=== PATIENT | male | born 1980 | race African-American/Black ===

== ENCOUNTER 2016-12-16 19:54 | Emergency (ER) | payer MEDICAID, OTHER ==
[~2016-12-16] VITALS: Ht 172.7 cm; Wt 68.0 kg
[2016-12-16] MEDS ORDERED: IV NS 0.9% 1,000 ML BAG IV ONE (20:30)
[2016-12-16 20:37] LABS: BASOPHILS # (AUTO) 0.1 /CMM (0.0-0.2); BASOPHILS % (AUTO) 0.6 % (0.0-2.0); DIFF TOTAL % 100 %; EOSINOPHILS # (AUTO) 0.1 /CMM (0.0-0.7); EOSINOPHILS % (AUTO) 1.6 % (0.0-6.0); HEMATOCRIT 43 % (39-51); HEMOGLOBIN 13.6 g/dL (13.5-17.5); LYMPHOCYTES # (AUTO) 3.6 /CMM (0.8-4.8); MEAN CORPUSCULAR HEMOGLOBIN 23 PG (26.0-33.0); MEAN CORPUSCULAR HGB CONC 32 g/dl (31.0-36.0); MEAN CORPUSCULAR VOLUME 73 fL (80-96); MONOCYTES # (AUTO) 0.4 /CMM (0.1-1.30); MONOCYTES % (AUTO) 4.1 % (2.0-12.0); NEUTROPHILS # (AUTO) 4.8 /CMM (1.8-8.9); NEUTROPHILS % (AUTO) 53.7 % (43.0-81.0); PLATELET COUNT (AUTO) 245 /CMM (150-450); RED BLOOD CELL COUNT(AUTO) 5.86 MIL/uL (4.5-6.0)
[2016-12-16] MEDS ORDERED: IV SET PRIMARY 1 EA INFUS.SET MC ONE (20:46)
[2016-12-16] MEDS ORDERED: IV NS 0.9% 1,000 ML ONE (20:46)
[2016-12-16 20:47] LABS: CALCIUM, SERUM 8.2 mg/dL (8.5-10.1); CREATININE 1.2 mg/dL (0.6-1.3); POTASSIUM 3.4 mmol/L (3.5-5.1)
[2016-12-16] MEDS ORDERED: POTASSIUM CHLORIDE 20 MEQ TAB.PRT.SR PO ONE ×2 (22:00→22:02)
[2016-12-16 22:09] VITALS: BP 116/55
== END 2016-12-16 22:09 | disposition home or self-care (01) ==
LOC: ER 19:56
DX: F12.10 Cannabis abuse, uncomplicated (principal); E87.6 Hypokalemia
CPT/HCPCS: 36415; 71010; 80048; 82962; 85025; 93005; 96360; 99285; A4606; J7030; Z7610